=== PATIENT | male | born 1955 | race Caucasian/White ===

== ENCOUNTER → 2019-03-15 08:22 | Outpatient (CLI) | payer OTHER ==
[2013-01-18 11:57] VITALS: BMI 28.1
== END | disposition home or self-care (01) ==
LOC: D.HCCARDIO 08:22
PROVIDERS: ATTEND Internal Medicine Cardiovascular Disease
DX: I20.9 Angina pectoris, unspecified (principal)

== ENCOUNTER 2019-03-29 07:14 | Outpatient (CLI) | payer OTHER ==
[~2019-03-29] VITALS: Ht 182.9 cm; Wt 88.2 kg
--- NOTE | ~2019-03-29 | HEMODYNAMI ---
PATIENT:SUZANNE ALVAREZ MEDICAL RECORD: [id number] : 57 LOCATION:[facility] ADMISSION DATE: 03/29/19 Generatedon:03/29/201910:44 Patient name: SUZANNE ALVAREZ Patient #: [id number] SSN: : 1955 Date of study: 03/29/2019 Page: Of Hemodynamic Procedure Report Patient Data Patient Demographics Procedure consent was obtained First Name: SUZANNE Gender: Male Last Name: ANTONIO : 1955 Middle Initial: KATY Age: 63 year(s) Patient #: [id number] Race: Unknown Additional ID: [id number] Contact details [address]: [address] [place] [address] State: [place] City: [place] Zip code: [address] Past Medical History Allergies: No known allergies Admission Admission Data Admission Date: 03/29/2019 Admission Time: 7:14 Lab Results Lab Result Date: 03/29/2019 Lab Result Time: 7:30 Biochemistry Name Units Result Min Max BUN mg/dl 22 --(----)-* 7 18 Creatinine mg/dl 0.8 --(-*--)-- 0.6 1.3 CBC Name Units Result Min Max Hematocrit % 42.9 --(*---)-- 42 54 Hemoglobin g/dl 14.7 --(-*--)-- 13.5 17.5 Procedure Procedure Types Cath Procedure Diagnostic Procedure C [facility] w/Coronaries Procedure Description Procedure Date Procedure Date: 03/29/2019 Procedure Start Time: 10:32 Procedure End Time: 10:42 Procedure Staff Name Function Rayo eFliz MD Performing Physician Vahe La RT Monitor [place] Villegas RT Scrub Sarah Ronquillo RN Nurse Procedure Data Cath Procedure Fluoroscopy Diagnostic fluoroscopy Total fluoroscopy Time: 1.7 time: 1.7 min min Diagnostic fluoroscopy Total fluoroscopy dose: 428 dose: 428 mGy mGy Contrast Material Contrast Material Type Amount (ml) Isovue 300 35 Entry Location Entry Primary Successful Side Size Upsize Upsize Entry Closure Guidry ccessful Closure Location (Fr) 1 (Fr) 2 (Fr) Remarks Device Remarks Radial Right 6 Fr Mechanical artery Short Compression Estimated blood loss: 10 ml Diagnostic catheters Device Type Used For End Catheter Placement DIAGNOSTIC Al 110cm Procedure 5Fr catheter ([id number]) Procedure Complications No complications Procedure Medications Medication Administration Route Dosage Oxygen etCO2 Nasal cannula 2 l/min Lidocaine 2% added to field 20 Heparin Flush Bag added to field 2 bags (1000units/500ml NS) 0.9% NaCl I.V. 100 ml/hr Radial Cocktail I.A. 1 syringe (Verapamil 2mg/Nitro 400mcg/Heparin 1500units) Versed I.V. 1 mg Fentanyl I.V. 50 mcg Versed I.V. 1 mg Fentanyl I.V. 50 mcg Versed I.V. 1 mg Hemodynamics Rest HGB: 14.7 (g/dl) Heart Rate: 61 (bpm) Pressure Samples Time Site Value (mmHg) Purpose Heart Use Rate(bpm) 10:35 LV 88/3,6 Snapshot 102 10:36 AO 106/54(74) Pullback 64 10:36 LV 100/-2,5 Pullback 64 Gradients Valve Time Site 1 Site 2 Mean SEP/DFP Peak To Heart Use (mmHg) (sec/min) Peak Rate (mmHg) (bpm) Aortic 10:36 LV AO 0 4 0 64 100/-2,5 106/54(74) Calculations Valve P-P Mean Valve Index Valve Source Name Gradient Area Flow (cm2) Aortic 0 0 0 0 Snapshots Pre Cath Intra NCS Post Cath Vital Signs Time Heart Resp SPO2 etCO2 NIBP Rhythm Pain Sedation Rate (ipm) (%) (mmHg) (mmHg) Status Level (bpm) 10:26:22 65 10 100 43.8 147/72(99) NSR 0 (11) 10(A) , No pain 10:30:36 60 12 98 0 117/76(89) NSR 0 (11) 10(A) , No pain 10:34:50 66 14 95 52 133/66(97) NSR 0 (11) 9(A) , No pain 10:39:02 69 13 95 47.5 106/64(87) NSR 0 (11) 10(A) , No pain 10:43:08 62 14 97 44.5 115/74(96) NSR 0 (11) 10(A) , No pain Medications Time Medication Route Dose Verified Delivered Reason Notes Effectiveness by by 10:25:34 Oxygen etCO2 2 l/min Rayo Buffie used for Nasal Tray Ronquillo RN procedure cannula 10:25:39 Lidocaine 2% added 20ml Rayo Rayo for local to vial Tray Feliz MD anesthetic field 10:25:47 Heparin Flush added 2 bags Rayo Rayo used for Bag to Tray Felzi MD procedure (1000units/500ml field NS) 10:25:58 0.9% NaCl I.V. 100 Rayo Buffie used for ml/hr Tray Ronquillo RN procedure 10:26:05 Radial Cocktail I.A. 1 Rayo Rayo for (Verapamil syringe Tray Feliz MD vasodilation 2mg/Nitro 400mcg/Heparin 1500units) 10:31:50 Versed I.V. 1 mg Rayo Buffie for sedation Tray Ronquillo RN 10:31:56 Fentanyl I.V. 50 mcg Rayo Buffie for sedation Tray Ronquillo RN 10:35:23 Versed I.V. 1 mg Rayo Buffie for sedation Tray Ronquillo RN 10:35:26 Fentanyl I.V. 50 mcg Rayo Buffie for sedation Tray Ronquillo RN 10:38:35 Versed I.V. 1 mg Rayo Buffie for sedation Tray Ronquillo RN Procedure Log Time Note 10:02:16 Time tracking: Regular hours (M-F 7:00 - 5:00) 10:02:20 Plan of Care:Hemodynamics will remain stable., Cardiac rhythm will remain stable., Comfort level will be maintained., Respiratory function will remain adequate., Patient/ family verbilizes understanding of procedure., Procedure tolerated without complication., Recovers from procedure without complications.. 10:02:23 Signed procedure consent form obtained from patient. 10:02:25 Diagnostic Cath status Elective 10:11:32 Sarah Ronquillo RN sent for patient. Start room use. 10:13:36 H&P Date Dictated: 02/28/2019 Within 30 days and on chart., H&P Addendum completed by physician on day of procedure. (MUST COMPLETE FOR ALL OUTPATIENTS). 10:13:43 Patient received from Pre/Post Procedure Room to CCL 1 Alert and oriented. Tansferred to table in Supine position. 10:13:44 Warm blankets applied, and elio hugger turned on for patient comfort. 10::45 Correct patient and procedure confirmed by team. 10::46 ECG and BP/O2 sat monitors applied to patient. 10::47 Pre-procedure instructions explained to patient. :: Pre-op teaching completed and patient verbalized understanding. 10::48 Family in waiting room. 10::50 Patient NPO since Midnight. :: Vital chart was started 10::34 Oxygen 2 l/min etCO2 Nasal cannula was administered by Sarah Ronquillo RN; used for procedure; 10::39 Lidocaine 2% 20ml vial added to field was administered by Rayo Feliz MD; for local anesthetic; 10::47 Heparin Flush Bag (1000units/500ml NS) 2 bags added to field was administered by Rayo Feliz MD; used for procedure; 10:25:58 0.9% NaCl 100 ml/hr I.V. was administered by Sarah Ronquillo RN; used for procedure; 10:26:05 Radial Cocktail (Verapamil 2mg/Nitro 400mcg/Heparin 1500units) 1 syringe I.A. was administered by Rayo Feliz MD; for vasodilation; 10:28:27 Baseline sample Acquired. 10::30 Rhythm: sinus rhythm 10::32 Full Disclosure recording started 10:28:38 Patient allergic to No known allergies 10:28:40 Is the patient allergic to Iodine/contrast media? No. 10:28:41 Is patient on blood thinner?No 10:28:42 Patient diabetic? No. 10:28:45 Previous problem with sedation/anesthesia? No ? 10:28:47 Snore? Yes 10:28:48 Sleep apnea? No 10:28:48 Deviated septum? No 10:28:49 Opens mouth fully? Yes 10:28:50 Sticks out tongue? Yes 10:28:51 Airway obstruction? No ? 10:28:54 Dentures? No ? 10:28:57 Pre procedure: right dorsailis pedis pulse 2+ Normal; easily identifiable; not easily obliterated 10:28:59 Modified Huber's test Ulnar < 7 seconds 10:29:00 Patient pain scale 0/10 ?. 10:29:07 IV patent on arrival in left wrist with 0.9% NaCl at [facility]. 10:30: Lab Result : Creatinine 0.8 mg/dl 10:: Lab Result : BUN 22 mg/dl 10:: Lab Result : Hemoglobin 14.7 g/dl 10:: Lab Result : Hematocrit 42.9 % 10:: Lab results completed and on chart. 10:30:30 Right Radial & Right Groin area was prepped with chlora-prep and draped in sterile fashion 10:30:31 Alarms reviewed by R. N. 10:30:32 Sharps counted by scrub and verified by R.N. 10:30:34 Use device set Radial Dx or PCI 10:30:34 ACIST Syringe (48313) opened to sterile field. 10:30:35 Medline Cath Pack ([id number]) opened to sterile field. 10:30:35 Bag Decanter (2002S) opened to sterile field. 10:30:36 ACIST Hand Control (60569) opened to sterile field. 10:30:36 ACIST Manifold (13777) opened to sterile field. 10:30:37 Tegaderm 4 x 4 (1626W) opened to sterile field. 10:30:37 MBrace Wrist Support ([id number]) opened to sterile field. 10:30:38 DIAGNOSTIC WIRE .035 260cm J wire (747589) opened to sterile field. 10:30:39 SHEATH 6FR Slender (80-3753) opened to sterile field. 10:30:40 NEEDLE Cook 21G 4cm Radial ([id number]) opened to sterile field. 10:30:46 Physician arrived 10:30:46 --------ALL STOP TIME OUT------ 10:30:46 Final Timeout: patient, procedure, and site verified with staff and physician. All members of the team are in agreement. 10:30:48 Right Radial & Right Groin site verified by team. 10:30:50 Maximum allowable Isovue 300 dose 300ml. Physician notified. (300ml for normal creatinines. For patients with creatinine of 1.7 or higher multiply weight(kg) x 5 divided by creatinine.) 10:30:54 Fire Safety Assessment: A--An alcohol-based skin anteseptic being used preoperatively., C--Open oxygen or nitrous oxide is being used., D--An ESU, laser, or fiber-optic light is being used. 10:30:56 Physical assessment completed. ASA score P 2 - A patient with mild systemic disease as per Rayo Feliz MD. 10:30:59 Sedation plan: IV Moderate Sedation Medication:Versed, Fentanyl 10:31:50 Versed 1 mg I.V. was administered by Sarah Ronquillo RN; for sedation; 10::56 Fentanyl 50 mcg I.V. was administered by Sarah Ronquillo RN; for sedation; 10:32:26 Procedure started. 10:32:30 Local anesthetic to right radial artery with Lidocaine 2% by Rayo Feliz MD.INITIAL ACCESS ONLY 10:32:52 A 6 Fr Short sheath was inserted into the Right Radial artery 10:33:19 A DIAGNOSTIC Al 110cm 5Fr catheter ([id number]) was advanced over the wire and used for Procedure. 10:34:26 Zero performed for pressure channel P1 10:34:29 Zero performed for pressure channel P1 10:34:32 Zero performed for pressure channel P1 10:35:23 Versed 1 mg I.V. was administered by Sarah Ronquillo RN; for sedation; 10:35:26 Fentanyl 50 mcg I.V. was administered by Sarah Ronquillo RN; for sedation; 10:35:35 LV gram done using LOPEZ 10:35:38 Injector settings: Ml/sec: 5, Volume: 15, 10:35:40 LV hemodynamics recorded. 10:35:50 EF : 60 % 10:36:32 RCA angiography performed. 10:36:53 LCA angiography performed. 10:37:43 Catheter removed. 10:37:45 TR BAND Standard ([id number]) opened to sterile field. 10:37:55 Sheath removed intact; hemostasis achieved with Mechanical Compression to the Right Radial artery. 10:37:57 Procedure ended.(Physican Out) 10:38:35 Versed 1 mg I.V. was administered by Sarah Ronquillo RN; for sedation; 10:38:49 Fluoroscopy time 01.70 minutes. 10:38:53 Flurop Dose total: 428 10:38:53 Fluoroscopy dose: 428 mGy 10:38:57 Contrast amount:Isovue 300 35ml. 10:38:58 Sharps counted by scrub and verified by R.N. 10:39:09 TR band inflated with 12cc of air. 10:39:10 Insertion/operative site no bleeding no hematoma. 10:40:56 Post right radial artery:stable, soft, clean and dry 10:41:14 Post Procedure Pulses reassessed and unchanged 10:41:17 Post-procedure physical assessment completed. ASA score P 2 - A patient with mild systemic disease as per Rayo Feliz MD. 10:41:19 Post procedure rhythm: unchanged. 10:41:21 Estimated blood loss: 10 ml 10:41:22 Post procedure instruction explained to patient.Patient verbalizes understanding. 10:41:23 Patient needs reinforcement of post procedure teaching. 10:42:39 Procedure and supply charges have been captured, reviewed, submitted and are correct. 10:42:42 Procedure Complication : No complications 10:42:44 Vital chart was stopped 10:42:45 See physician's report for complete and final results. 10:42:47 Report given to Pre/Post Procedure Room. 10:42:49 Patient transfered to Pre/Post Procedure Room with Stretcher. 10:42:51 Procedure ended. 10:42:51 Full Disclosure recording stopped 10:42:54 End room use (Document Last) Device Usage Item Name Manufacture Quantity Catalog Hospital Part Current Minimal Lot# / Number Charge Number Stock Stock Serial# Code ACIST Acist 1 26536 993652 [id number] [id number] 20 Syringe Medical (52514) Systems Inc Medline Medline 1 [id number] 642547 10092 722782 5 Cath Pack ([id number]) Bag Microtek 1 2001S 366986 23126 801029 5 Decanter Medical Inc. () ACIST Hand Acist 1 65070 954009 820879 487869 5 Control Medical (71412) Systems Inc ACIST Acist 1 63019 953573 395699 217714 5 Manifold Medical (18592) Systems Inc Tegaderm 4 3M 1 1626W 286590 137126 071089 5 x 4 (1626W) MBrace Advanced 1 140-0250-00 780573 01794 622253 5 Wrist Vascular Support Dynamics ([id number]) DIAGNOSTIC [facility] 1 135010 182361 503494 832932 30 WIRE .035 260cm J wire (066203) SHEATH 6FR Terumo 1 [id number] 030355 254056 693165 5 Slender (80-1060) NEEDLE [facility] 1 M29922 120773 774148 462435 5 21G 4cm Radial (G02007) TR BAND Terumo 1 [id number] 567178 312649 992117 40 Standard ([id number]) DIAGNOSTIC Terumo 1 92-3738 496997 767428 238484 5 Al 110cm 5Fr catheter (888076) Signature Audit [place] Stage Time Signature Unsigned Intra-Procedure 03/29/2019 Vahe La 10:44:41 AM RT(R) Signatures Monitor : Vahe La RT Signature : Date : Time : [place] [id number] [place] [address]
[2019-03-29 07:37] VITALS: BP 126/64; Ht 182.9 cm; Wt 88.2 kg
[2019-03-29 07:57] LABS: BASOPHILS 1.1 % (0-2); EOSINOPHILS 3.2 % (0-7); HEMATOCRIT 42.9 % (42.0-54.0); HEMOGLOBIN 14.7 g/dL (13.5-17.5); IMMATURE GRANULOCYTES 0.2 % (0-5); LYMPHOCYTES 36.9 % (15-50); MCH 29.6 pg (26.0-34.0); MCHC 34.3 g/dL (31.0-37.0); MCV 86.3 fL (80.0-100.0); MEAN PLATELET VOLUME 10.5 fL (7.4-10.4); MONOCYTES 8.4 % (2-11); NEUTROPHILS 50.2 % (40-80); PLATELET COUNT 254 10x3/uL (130-400); RBC 4.97 10x6/uL (4.20-6.10); RDW 13.2 % (11.5-14.5); WBC 5.3 10x3/uL (4.8-10.8)
[2019-03-29 08:09] LABS: CALC OSMOLALITY 287 mosm/kg (275-300); CALCIUM 8.7 mg/dL (8.5-10.1); CARBON DIOXIDE 28.6 mmol/L (21.0-32.0); CHLORIDE - SERUM 106 mmol/L (98-107); CREATININE - SERUM 0.8 mg/dL (0.6-1.3); GLUCOSE 96 mg/dL (74-106); POTASSIUM - SERUM 4.1 mmol/L (3.5-5.1); SODIUM 143 mmol/L (136-145); UREA NITROGEN 22 mg/dL (7-18); eGFR NON AFRICAN AMERICAN > 90 mL/min (90-120)
--- NOTE | 2019-03-29 10:53 | NUR ---
RIGHT RADIAL TR BAND IN PLACE. NO BLEEDING/HEMATOMA NOTED. PT ARRIVED BY STRETCHER. PLACED ON MONITOR. ASSESSMENT COMPLETED. CALL LIGHT WITHIN REACH
--- NOTE | 2019-03-29 11:10 | NUR ---
PT RESTING COMFORTABLY. TOLERATING SIPS OF WATER. RIGHT RADIAL TR BAND IN PLACE. NO BLEEDING/HEMATOMA NOTED. FAMILY AT BEDSIDE. VSS.
--- NOTE | 2019-03-29 11:42 | NUR ---
PT SITTING UP IN BED. MORE ALERT. EATING A SANDWICH AND DRINKING WATER. DENIES NAUSEA. VSS. RIGHT RADIAL TR BAND IN PLACE. NO BLEEDING/HEMATOMA NOTED.
--- NOTE | 2019-03-29 12:09 | NUR ---
3cc OF AIR REMOVED FROM TR BAND. NO BLEEDING/HEMATOMA NOTED. VSS. FAMILY AT BEDSIDE.
--- NOTE | 2019-03-29 12:25 | NUR ---
3cc OF AIR REMOVED FROM TR BAND. NO BLEEDING/HEMATOMA NOTED. VSS.
--- NOTE | 2019-03-29 12:26 | NUR ---
DISCUSSED DISCHARGE INSTRUCTIONS WITH PT AND PT'S FAMILY. THEY VOICED UNDERSTANDING.
--- NOTE | 2019-03-29 12:35 | NUR ---
LEFT FA PIV D/C'D WITH CATH TIP INTACT. PT TOLERATED WELL. PT INSTRUCTED TO GET UP AND DRESSED. RIGHT RADIAL TR BAND IN PLACE. NO BLEEDING/HEMATOMA NOTED. 2cc OF AIR REMOVED.
--- NOTE | 2019-03-29 12:45 | NUR ---
TR BAND REMOVED. DRESSING APPLIED. NO BLEEDING/HEMATOMA NOTED. RIGHT WRIST BRACE APPLIED. PT INSTRUCTED TO KEEP ON FOR 2 HOURS AFTER ARRIVAL HOME.
--- NOTE | 2019-03-29 13:00 | NUR ---
PT TAKEN OUT TO VEHICLE BY WHEELCHAIR. STOPPED AND VOIDED IN RESTROOM WITHOUT DIFFICULTY. NO S/S OF DISTRESS NOTED. RIGHT WRIST DRESSING C/D/I. NO S/S OF HEMATOMA NOTED. ALL BELONGINGS AND PAPERWORK IN HAND.
== END 2019-03-29 13:00 | disposition home or self-care (01) ==
LOC: D.CATH 07:14
PROVIDERS: ATTEND Internal Medicine Cardiovascular Disease
DX: R94.30 Abnormal result of cardiovascular function study, unspecified (principal); I25.119 Atherosclerotic heart disease of native coronary artery with unspecified angina pectoris